=== PATIENT | female | born 1955 | race Caucasian/White ===

== ENCOUNTER → 2017-10-07 | Outpatient (CLI) | payer OTHER ==
[~2017-10-07] MED LIST: ALLEGRA180 MG PO; ASPIRIN 81MG TA81 MG PO; BENZONATATE100 MG PO; CALCIUM 600600 M1 PO; DETROL LA4 MG PO; LISINOPRIL 10MG10 MG PO; MUCINEX600 M1 PO; SYNTHROID 0.0.125 MG PO; TOPAMAX200 MG PO; TRICOR 145 MG145 MG PO
--- NOTE | 2017-10-07 12:25 | RADIOLOGY REPORT PS360 ---
HIP LT 2-3V W/PELVIS IF PERFOR HISTORY: LOW BACK PAIN WITH LT HIP PAIN ORDERING PHYSICIAN: Elliott Duckworth MD PATIENT AGE: 62 years COMPARISON: None FINDINGS: No fracture or dislocation is evident. No significant degenerative change. No lytic or blastic change. Unremarkable soft tissues IMPRESSION: Negative left hip
--- NOTE | 2017-10-07 12:25 | RADIOLOGY REPORT PS360 ---
EXAM: LUMBAR SPINE 5 VIEWS HISTORY: LOW BACK PAIN WITH LT HIP PAIN ORDERING PHYSICIAN: Elliott Duckworth MD PATIENT AGE: 62 years COMPARISON: None FINDINGS: There is mild lumbar scoliosis convex right. Degenerative disc disease is present at L3-L4 and L5-S1. There is mild retrolisthesis of L3 on L4 of 3 mm. Facet arthritic changes are present at L3-L4 L4-5 and L5-S1. No fracture or dislocation. No lytic or blastic change. There is 4 mm right lateral translation of L3 on L4 IMPRESSION: Mild lumbar scoliosis with degenerative disc disease and facet arthritic change as described above
== END ==
LOC: RAD 11:40
DX: M54.5 Low back pain (principal); M25.552 Pain in left hip